=== PATIENT | male | born 1990 | race Caucasian/White ===

== ENCOUNTER → 2020-08-11 12:01 | Outpatient (CLI) | payer OTHER, SELFPAY ==
--- NOTE | 2020-08-11 12:53 | STEWCON_ITS ---
Reason For Study: dyspnea on exertion. post-viral disorder Stress Results Protocol: Pérez Protocol WITH DEFINITY Maximum Predicted HR: 189 bpm Target HR: 161 bpm % Maximum Predicted HR: 95 % Heart Stage Duration Rate BP Comment (mm:ss) (bpm) Baseline 64 120/80no chest pain stage one 3:00 98 118/82no chest pain stage two 3:00 120 114/80no chest pain stage three 3:00 155 112/78no chest pain, mild shortness of breath stage four 1:31 179 / chest heaviness 2/10, moderate shortness of breath chest heaviness 2/10, at 2 minutes of recovery, gone by 5 minutes. recovery 96 134/76shortness of breath resolved by 2 minutes of recovery. 4ml total of definity given per protocol. Stress Duration: 10:31 mm:ss Maximum Stress HR: 179 bpm Baseline Echocardiogram Findings Stress Echo Wall motion Data Resting WM Intermediate WM Stress WM Interpretation Summary Exercise stress echo 29-year-old man with a history of chest pain dyspnea on exertion status post COVID-19. Stress protocol: Resting EKG demonstrates normal sinus rhythm with a rate of 61 bpm normal intervals are noted resting blood pressure is 120/80 mmHg. The patient exercised according to regular Pérez protocol for a total duration of 10 minutes and 31 seconds. The maximum heart rate attained was 179 bpm which was 94% of max impacted heart rate the maximum workload was 13.4 metabolic equivalents. At rest there were no ST or T wave changes noted suggest ischemia peak exercise upsloping ST changes only were noted with no meet the criteria for ischemia. The patient did experience some chest heaviness at peak exercise with shortness of breath which appeared to improve on discontinuation of the exercise. The test was terminated due to the target heart rate being achieved. The peak blood pressure was 138/78 mmHg. There was adequate blood pressure response to exercise. Stress echocardiogram. The resting and stress echocardiographic images were obtained. The above were obtained with Definity enhancement. The resting echocardiogram demonstrated low normal ejection fraction of 50%. At peak there was thickening of all méndez and reduction in low ventricular cavity size with peaking of ejection fraction at 60%. No wall motion abnormalities were noted. Conclusion: Exercise stress test with no EKG criteria for ischemia at a high workload. Chest discomfort of questionable significance. Resting and stress echocardiographic images demonstrated no evidence of ischemia. Ordering Physician: Gregory Thao Referring Physician: Cade Ocampo MD Performed By: Jovanna Beltran RDCS, RVT
== END ==
PROVIDERS: PCP Student in an Organized Health Care Education/Training Program; Referring Provider Student in an Organized Health Care Education/Training Program; Visit Provider Student in an Organized Health Care Education/Training Program
DX: R06.00 Dyspnea, unspecified (principal); B94.8 Sequelae of other specified infectious and parasitic diseases
CPT/HCPCS: 93017; 93350; Q9957; A4216; C8928